=== PATIENT | male | born 1965 | race Caucasian/White ===

== ENCOUNTER 2018-04-22 05:57 | Emergency (ER) | payer OTHER ==
[~2018-04-22] VITALS: Ht 185.4 cm; Wt 87.0 kg
[2018-04-22] MEDS ORDERED: LIDOCAINE HCL/PF 1% 2ML VIAL INFIL ONE (06:45)
[2018-04-22] MEDS ORDERED: LIDOCAINE HCL/PF 1% 10 MG/ML 5ML VIAL IJ ONE (07:15)
[2018-04-22] MEDS ORDERED: IBUPROFEN 600MG TABLET PO ONE (08:00)
[2018-04-22] MEDS ORDERED: BACITRACIN ZINC OINT UDPKT TOP ONE (08:00)
[2018-04-22 08:30] VITALS: BP 120/80
== END 2018-04-22 08:40 | disposition home or self-care (01) ==
LOC: ER 05:57
DX: S01.01XA Laceration without foreign body of scalp, initial encounter (principal); F41.9 Anxiety disorder, unspecified; Z98.890 Other specified postprocedural states; W01.190A Fall on same level from slipping, tripping and stumbling with subsequent striking against furniture, initial encounter; Y93.89 Activity, other specified; Y92.018 Other place in single-family (private) house as the place of occurrence of the external cause
CPT/HCPCS: 12002; 70450; 99284; J3490; Z7610